=== PATIENT | female | born 1995 | race Caucasian/White ===

== ENCOUNTER → 2018-01-22 13:40 | Outpatient (CLI) | payer OTHER, SELFPAY ==
[2018-01-23 12:10] LABS: Group B Strep DNA By PCR Negative (Negative); Internal Control PASS; Probe Check PASS; Specimen Processing Control PASS
== END ==
PROVIDERS: Visit Provider Obstetrics & Gynecology
DX: Z36.85 Encounter for antenatal screening for Streptococcus B (principal)
CPT/HCPCS: 87081; 87653

== ENCOUNTER 2018-02-11 14:00 | Inpatient (IN) | payer SELFPAY ==
[2018-02-11] VITALS (13 sets, daily range): BP systolic 115–135; BP diastolic 67–88; PULSE 77–103; RESP 12–18; TEMP 36.1–36.8; O2SAT 97–99; BMI 27.2
[2018-02-11] MEDS: Lactated Ringers 1,000 ML 999 ML IV (14:45)
[2018-02-11 15:39] LABS: Absolute Lymphocyte Count 2.11 X10^3/ul (0.83-4.51); Absolute Neutrophil Count 8.5 X10^3/uL (2.0-7.7); Basophil# 0.01 X10^3/uL; Basophil% 0.1 % (0-1); Eosinophil# 0.02 X10^3/uL; Eosinophils% 0.2 % (0-5); Hematocrit 37.1 % (37-47); Hemoglobin 12.2 g/dl (12.0-15.0); Lymphocyte # 2.11 X10^3/ul (4.0); Lymphocyte % 18.5 % (19-41); Mean Corp Hgb Conc 32.9 g/gl (32-36); Mean Corpuscular Hgb 29.5 pg (27.0-32.0); Mean Corpuscular Volume 89.6 fL (81-99); Mean Platelet Vol. 10.4 fl (6.2-12.0); Monocyte# 0.72 X10^3/uL; Monocyte% 6.3 % (0-10); Neutrophil % 74.5 % (47-70); Platelet Count 261 K/mm3 (150-450); RBC Distribution Width CV 12.1 % (11.6-14.6); RBC Distribution Width SD 39.1 fl (35.1-43.9); Red Blood Count 4.14 M/mm3 (4.2-5.4); White Blood Count 11.4 K/mm3 (4.4-11.0)
[2018-02-11 15:41] LABS: POSITIVE COUNT NO; POSITIVE DIFFERENTIAL NO; POSITIVE MORPHOLOGY NO
[2018-02-11] MEDS: Lactated Ringers 1,000 ML 150 ML IV (15:45)
[2018-02-11 15:47] LABS: International Normalized Ratio 0.9; Partial Thromboplast Time 27.5 Seconds (24.1-36.2); Prothrombin Time (Protime)PT. 12.3 SECONDS (11.7-14.9)
[2018-02-11] MEDS: Sodium Citrate/Citric Acid 30 ML UDC PO (16:43)
[2018-02-11] MEDS: Cefazolin 2 GM in 0.9% Normal Saline 100 ML IV (17:05)
[2018-02-11] MEDS: Oxytocin 30 units/NS 500 ml 30 UNITS/500 ML IV.SOLN 167 UNITS IV (17:20)
[2018-02-11] MEDS: Ketorolac 30 MG/ML Syringe IV (17:48)
--- NOTE | 2018-02-11 18:01 | OP.PCM_ITS ---
Operative Report Date of Procedure: 02/11/18 Surgeon: Pardeep Nickerson MD, FACOG Drawing Frame Tender: CELESTE Purcell Anesthesia: Barry Garcia CRNA Anesthesia: Spinal with Duramorph Pre-op Diagnosis: - -Breech Presentation, 39 Weeks Gestation Post-Op Diagnosis: - -Breech Presentation, 39 Weeks Gestation Procedure: Primary low Transverse Cervical Caesarean Section Findings: Viable male with Apgars of 8/9 in crystal breech presentation with clear amniotic fluid and normal three-vessel placenta. Indication: This is a 22-year-old who presents for her first at 39+ weeks gestation for breech presentation. care has otherwise been uneventful. The patient has been counseled regarding the risk and indications of this procedure including the possibility of bleeding infection and injury to surrounding structures such as bowel bladder. All questions were answered. Procedure: Patient was taken to the operating room where after spinal anesthesia was placed, the patient was prepped and draped in usual sterile fashion and a Edmondson catheter was placed. The abdomen was entered through a Pfannenstiel incision and peritoneum was entered bluntly. After developing a bladder flap on the lower uterine segment a low transverse incision was made on the uterus and breech followed by the baby was easily delivered onto the operative field the nose mouth and oropharynx were bulb suctioned. Subsequently a viable male infant was born with Apgars of 8/9. The infant was noted to cry move all extremities vigorously on the operative field. The umbilical cord was doubly clamped and ligated and handed to the nursery personnel who were present for the delivery. Placenta was delivered and noted to be 3 vessels and normal. Uterus was exteriorized and remaining placental tissue was removed. The uterus was then closed in 2 layers first with running locked 0 Vicryl suture followed by a second imbricating layer with 0 Vicryl suture. 0 Vicryl suture was then used in a horizontal mattress interrupted fashion to affect final hemostasis of the uterine incision line. Normal fallopian tubes and ovaries were visualized and the uterus was returned to the pelvis. Hemostasis was noted and rectus abdominis muscles were reapproximated in the midline with interrupted Number 1 Vicryl suture in a horizontal mattress fashion. Fascia was closed with running Number 1 PDS Strata fix suture. Subcutaneous tissue was irrigated with copious amouts of saline solution and then closed with running 3-0 Vicryl suture. Skin was closed with 4-0 monocryl suture in a running subcuticular fashion. Steri strips, telfa, and tape were placed across the incision. The patient tolerated the procedure well and was taken to the recovery room in satisfactory condition. Sponge, needle, and instrument counts were all reportedly correct. EBL was less than 500 cc. Ancef 2 gms IV was given prior to the procedure. Spicemen to Pathology: None Complications: None
--- NOTE | 2018-02-11 18:02 | DCINST_ITS ---
Discharge Diet: No Restrictions Discharge Activity: May not drive while taking narcotic pain medications., May Shower, May Take a Tub Bath May resume sexual activity in: 4-6 weeks Lifting Restrictions: 20 pounds Additional Activity Instructions:: Nothing in the vagina for 4-6 weeks. You may return to work/school in 6 weeks. Call your doctor if your incision/area has: Continuous Slow Oozing, Sudden Increased Bleeding, Increased Pain/ Swelling, Increased Redness, Foul Smelling Discharge Call your doctor if you observe: Fever of 101 or Higher, Inability to urinate, Inability to have a bowel movement, Using more than one pad per hour Additional Instructions: If you experience any of the following, contact your healthcare provider. * Bleeding that soaks a pad every hour for 2 hours * Unrelieved incision or abdominal pain * Swelling, redness, discharge or bleeding from your incision or episiotomy site * Your incision begins to separate * Problems urinating (including inability to urinate or burning while urinating) . * Visual changes * Severe headache * Flu-like symptoms * Pain or redness in one of both of your breasts * Pain, warmth, tenderness or swelling in your legs, especially the calf area * Frequent nausea and vomiting * Symptoms of depression or anxiety If you experience any of the following, call 911 or go to the nearest Emergency Room. * Chest pain * Problems breathing * Seizure activity * Partial or complete paralysis of a body part, slurred speech, weakness or drooping of the face, or a sudden inability to walk or hold your balance Allergies/Adverse Reactions: Allergies No Known Allergies Allergy (Verified 02/11/18 15:52) Medications to take at Discharge Docusate Sodium [Colace] 100 mg PO BID PRN PRN #60 cap 02/11/18 Oxycodone [Oxyir] 5 mg PO Q6H PRN PRN 7 Days #20 tab 02/11/18 Vits [Prenatabs FA] 1 tablet PO DAILY 02/11/18 The following prescriptions were given: Oxycodone [Oxyir] 5 mg PO Q6H PRN PRN 7 Days #20 tab PRN Reason: Severe Pain (6-07/24) Docusate Sodium [Colace] 100 mg PO BID PRN PRN #60 cap PRN Reason: Constipation Follow-Up: Call to make an appointment with your doctor for an incision check in 1-2 weeks. You will also need a 6 week post- follow up appointment. Please Follow Up With: Pardeep Nickerson MD - [phone] When: Call to make an appointment for an incision check in 2 weeks. Primary Care Physician: Care Physician,No Primary [Primary Care Provider] -
[2018-02-11] MEDS: Lactated Ringers 1,000 ML 100 ML IV (21:36)
[2018-02-12] VITALS (16 sets, daily range): BP systolic 105–121; BP diastolic 61–80; PULSE 75–97; RESP 16–18; TEMP 36.4–37; O2SAT 95–100
[2018-02-12] MEDS: Cefazolin 1 GM/50 ML BAG IV ×2 (00:22→10:00)
[2018-02-12] MEDS: Ketorolac 30 MG/ML Syringe IV ×4 (00:22→17:39)
[2018-02-12 05:16] LABS: Hematocrit 33.6 % (37-47); Hemoglobin 11.3 g/dl (12.0-15.0); Mean Corp Hgb Conc 33.6 g/gl (32-36); Mean Corpuscular Hgb 30.2 pg (27.0-32.0); Mean Corpuscular Volume 89.8 fL (81-99); Mean Platelet Vol. 10.3 fl (6.2-12.0); Platelet Count 222 K/mm3 (150-450); RBC Distribution Width CV 11.9 % (11.6-14.6); RBC Distribution Width SD 37.6 fl (35.1-43.9); Red Blood Count 3.74 M/mm3 (4.2-5.4); White Blood Count 14.9 K/mm3 (4.4-11.0)
[2018-02-12 05:20] LABS: Scan Indicated on CBC? Y/N NO
[2018-02-12] MEDS: 0.9% Saline Lock 10 ML Syringe IV ×3 (06:26→17:39)
--- NOTE | 2018-02-12 06:52 | PN.OBGYN_ITS ---
Subjective: Postoperative day #1 primary Patient without complaints. Tolerating diet well. Positive flatus. Breast- feeding going well. - Physical Exam Vital Signs AF, VSS Temp Pulse Resp BP Pulse Ox 97.6 F L 75 16 105/68 97 02/12/18 04:13 02/12/18 05:13 02/12/18 05:13 02/12/18 04:13 02/12/18 05:13 Oxygen Delivery Method Room Air Weight: 144 lb 2.917 oz Body Mass Index (BMI) 27.2 Intake and Output for Last 24 Hours 02/10/18 02/11/18 02/12/18 23:59 23:59 23:59 Intake Total 2326 / 2326 1592 / 1592 Output Total 700 / 700 1800 / 1800 Balance 1626 / 1626 -208 / -208 Laboratory Tests Past 24 Hrs 02/11/18 02/11/18 02/11/18 14:49 14:49 14:49 WBC 11.4 H RBC 4.14 L Hgb 12.2 Hct 37.1 MCV 89.6 MCH 29.5 MCHC 32.9 RDW 12.1 RDW Differential 39.1 Plt Count 261 MPV 10.4 Immature Gran % (Auto) 0.400 Neut % (Auto) 74.5 H Lymph % (Auto) 18.5 L [place] % (Auto) 6.3 Eos % (Auto) 0.2 Baso % (Auto) 0.1 Absolute Neuts (auto) 8.5 H Absolute Lymphs (auto) 2.11 Total Counted Not Reportable PT 12.3 INR 0.9 APTT 27.5 Blood Type Cancelled A1 Antigen Typing Cancelled Rho(D) Type Cancelled Antibody Screen Cancelled 02/11/18 02/12/18 15:52 04:31 WBC 14.9 H RBC 3.74 L Hgb 11.3 L Hct 33.6 L MCV 89.8 MCH 30.2 MCHC 33.6 RDW 11.9 RDW Differential 37.6 Plt Count 222 MPV 10.3 Immature Gran % (Auto) Neut % (Auto) Lymph % (Auto) [place] % (Auto) Eos % (Auto) Baso % (Auto) Absolute Neuts (auto) Absolute Lymphs (auto) Total Counted PT INR APTT Blood Type O POSITIVE A1 Antigen Typing Rho(D) Type Antibody Screen NEGATIVE Wound is clean, dry, intact. Good urine output. Hemoglobin okay. Medical Necessity - Tobacco Use Smoking Status: Never smoker Assessment/Plan Postoperative day #1 primary for breech. Doing well. Continuing present care.
[2018-02-12] MEDS: oxyCODONE 5 MG Tablet PO (22:14)
[2018-02-13] MEDS: Ketorolac 30 MG/ML Syringe IV (00:08)
[2018-02-13] MEDS: 0.9% Saline Lock 10 ML Syringe IV (00:08)
[2018-02-13 02:32] VITALS: BP 102/48; PULSE 64; RESP 16; TEMP 37.1; O2SAT 95
[2018-02-13] MEDS: Ibuprofen 600 MG Tablet PO (06:42)
[2018-02-13 08:00] VITALS: BP 118/49; PULSE 72; RESP 16; TEMP 36.4; O2SAT 95
--- NOTE | 2018-02-13 08:15 | PN.OBGYN_ITS ---
Subjective: Patient without complaints. Tolerating diet well. Positive flatus. Breast- feeding going well. Wants to go home. - Physical Exam Vital Signs Temp Pulse Resp BP Pulse Ox 98.8 F 64 16 102/48 L 95 02/13/18 02:32 02/13/18 02:32 02/13/18 02:32 02/13/18 02:32 02/13/18 02:32 Oxygen Delivery Method Room Air Weight: 144 lb 2.917 oz Body Mass Index (BMI) 27.2 Intake and Output for Last 24 Hours 02/11/18 02/12/18 02/13/18 23:59 23:59 23:59 Intake Total 2326 / 2326 1592 / 1592 Output Total 700 / 700 4900 / 4900 Balance 1626 / 1626 -3308 / -3308 Medical Necessity - Tobacco Use Smoking Status: Never smoker Assessment/Plan Postoperative day #2 status post very for breech. Doing well. Will release to home with routine instructions.
[2018-02-13] MEDS: Senna/Docusate Sodium 1 Tablet PO (10:47)
[2018-02-13 14:30] VITALS: BP 111/70; PULSE 98; RESP 16; TEMP 36.6; O2SAT 97
== END 2018-02-13 17:00 | disposition home or self-care (01) | DRG 766 ==
PROVIDERS: Admitting Provider Obstetrics & Gynecology; Visit Provider Obstetrics & Gynecology
PROC: 10D00Z1 Extraction of Products of Conception, Low, Open Approach (ICD-10-PCS; CPT 59514; principal; 2018-02-11 16:45)
DX: O32.1XX0 Maternal care for breech presentation, not applicable or unspecified (principal); Z3A.39 39 weeks gestation of pregnancy; Z37.0 Single live birth
CPT/HCPCS: 85025; 85027; 85610; 85730; 86850; 86900; 99218; J7120; A4216; G0378; J2405

== ENCOUNTER → 2019-06-24 11:30 | Outpatient (CLI) | payer OTHER, SELFPAY ==
[2018-02-11 15:50] VITALS: BMI 27.2
[2019-06-25 16:17] LABS: Chlamydia Trachomatis by PCR Negative (Negative); Neisserai gonorrhoeae by PCR Negative (Negative); Probe Check PASS; Sample Adequacy Control PASS; Specimen Processing Control PASS
[2019-06-30 12:19] LABS: HPV Reflexed? NOT INDICATED
== END ==
PROVIDERS: Referring Provider Obstetrics & Gynecology; Visit Provider Obstetrics & Gynecology
DX: Z11.3 Encounter for screening for infections with a predominantly sexual mode of transmission (principal); Z12.4 Encounter for screening for malignant neoplasm of cervix
CPT/HCPCS: 87491; 87591; 87624; 88175; G0145

== ENCOUNTER → 2019-07-11 11:00 | Outpatient (CLI) | payer OTHER, SELFPAY ==
[2018-02-11 15:50] VITALS: BMI 27.2
[2019-07-11 14:17] LABS: Color, Urine Amber (Yellow); Glucose, Dipstick Normal (Normal); Ketone-Dipstick Negative (Negative); Leukocyte Esterase-Dipstick 500 /ul (Negative); Nitrite-Dipstick Negative (Negative); Occult Blood-Urine 10 /ul (Negative); Protein-Dipstick 15 mg/dl (Negative); Specific Gravity, Urine 1.025 (1.002-1.030); Urine Bilirubin Dipstick Negative (Negative); Urine Clarity Turbid (Clear); Urine Urobilinogen Normal (Normal)
== END ==
PROVIDERS: Visit Provider Obstetrics & Gynecology
DX: Z34.81 Encounter for supervision of other normal pregnancy, first trimester (principal)
CPT/HCPCS: 36415; 81002

== ENCOUNTER 2020-02-05 05:30 | Inpatient (IN) | payer SELFPAY ==
[2018-02-11 15:50] VITALS: BMI 27.2
--- NOTE | 2020-02-04 23:27 | HP.PCM_ITS ---
History and Physical Date of Admission: 02/05/20 [facility] [place] [facility] - HISTORY AND PHYSICAL (02/04/2020) Name: FILIPE GALEANO OB Physician: BROWN History of This : This is a 24-year-old patient who presents for her second section at 39 weeks 0 days gestation. Patient declines a vaginal after and desires we proceed with repeat section. 's Physician: Jatin ...................................................................... : 1995 Age: 24 Address: [address] [place] [address] Phone: ([phone] Insurance Carrier: [facility] [id number] Emergency Contact: JASON GALEANO [phone] ...................................................................... Final CHATO: 02/12/20 By Ultrasound: 9 weeks 1 day PARITY: (G-Total Pregnancies P-Fullterm,Premature,Induced AB,Spont AB, Ectopics, Multiple,Living) CHATO CONFIRMATION: By LMP: 05/08/19 Initial Exam: 02/12/20 By First Ultrasound Exam: 02/11/20 Final CHATO: 02/12/20 OB PROBLEM LIST: BREECH at 37-- weeks--plan for now -- calculator success predicted 82 percent MSAFP and CF testing declined Wants repeat ALLERGIES: No Known Allergies MEDICATIONS: Colace 100 mg capsule One capsule by mouth 2 x daily as needed for constipation 28 mg iron-800 mcg tablet One pill by mouth once a day Zofran 4 mg tablet one by mouth every 8 hrs prn nausea/vomiting SOCIAL HISTORY: Smoking - Never Alcohol Use - denies drinking Diet - balanced Diet Lifestyle - low stress lifestyle and Exercise - active Employer - [employer] 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 Drug Use - denies use of street drugs Sexual Activity - Residence - lives with Place of - [place], [place] Spouse-Sig Other Name - Marcos Spouse-Sig Other Occupation - [employer] Spouse-Sig Other Phone No - [phone] Children Name(s) - Nathan(18) PRIOR DELIVERY HISTORY DEL DATE GEST LAB WT LB WT OZ TYPE ANES LABOR TX 30 Apr 18 39 0 6 12 C-Sec Spinal No ANTEPARTUM FLOW CHART VISIT RTC FU F F RI U U DATE WK MD WKS HT PN HR M SS BP ED WT RI GL D EF ST __ ____ ___ __ __ ___ __ __ __ ___ __ __ __ ___ __ 14 Jan 37 JMW 7 37 + + 108/75 0 148 tr - 31 Dec 35 JMW 2 35 V + + 124/80 tr 149 tr - 10 Dec JMW 3 32 + + 110/62 0 146 tr - 11 Dec 12 JMW 3 28 + + 114/64 0 141 tr 1+ 21 Nov 08 JMW 3 25 + + 104/68 0 136 tr - 17 Oct 03 JMW 4 20 + + 110/68 0 128 - - 19 Aug 30 JMW 4 16 + ? 100/66 0 122 - - 22 Jul 26 JMW 4 + O 104/62 0 115 - - 27 Jun 23 JMW 4 + US 114/70 0 113 tr - ANTEPARTUM NOTE(S): Jan 27 2020: LARC done Jan 13 2020: Good FM,Feeling Well Dec 23 2019: Feeling Well, Good FM Nov 25 2020: Doing Well, 1hrGTT/CBC today Nov 04 2019: Glucola/Instructions Given,Good FM,Feeling Well Sep 30 2019: Sono Today,Good FM,Feeling Well Sep 02 2019: Nausea and Fatigue Better,Declines AFP Aug 05 2019: Nausea/Fatigue Better,Feeling Well Jul 11 2019: Sono,PNV and NOB Visit COMPREHENSIVE ANTEPARTUM NOTE(S): Jul 11 2019: Filipe is here ay 9 w 1 d for her NOB visit, she is a with an CHATO of 02/13/2020. , Marcos, and their 17 month old son, Nathan, accompany Filipe today. Nathan was delivered by C/S for breech presentation at [facility]. Past history updated. Filipe states that at this time, she is leaning toward having a repeat C/S. Delivery at [facility] is planned and she will will breastfeed. Office practice patterns reviewed, including labs that will be collected today. She is aware of danger signs/emergencies to report, and how to do same. Reviewed round ligament pain, reporting suspected UTI, and common OTC medications approved/not approved for use during . Due to nausea, she has not been taking a vitamin; suggested trying 2 [employer]'s Chewable vitamins a day until nausea resolves. She has been taking Zofran for nausea, and states that this has been helpful, and that she can usua lly eat and drink water without problems. She takes Colace, and states this has been effective. Encouraged small frequent meals with protein included throughout the day and adequate water hydration of at least 1 gallon per 24 hours. Genetic Screen completed, no significant history noted. MSAFP and CF testing declined, consent signed as such. Filipe is a life long non-smoker and denies use of drugs or ETOH. water and dietary needs reinforced, including caloric needs, recommended weight gain, limiting empty calories, and limiting caffeine to one cup a day. Printed guide for food safety during provided with review. Lifting restrictions discussed. Physical activity recommendation reviewed. Filipe has no questions following NOB viist, and states that she understands all information provided during same. AW New Jun 24 2019: Filipe presents for her Missed Menses. She is a 24yo G 2, P 1 with hx of P/ for BREECH presentation. She is uncertain if she would like to attempt or go to R/. LMP 05/08/19, CHATO by LMP 02/13/20. She has had severe Nausea and Vomitting and started on Zofran yesterday. I recommend she push fluids as tolerated and try the BRAT diet for several days until she gets this N and V under control. No other questions or concerns voiced. JT Jun 24 2019: ok REVIEW OF SYSTEMS: GENERAL - Denies fever, or chills SKIN - Denies rash, new skin lesions, or change in moles EYES - Denies blurred vision, or change in visual acuity EARS - Denies ear pain, or difficulty hearing NOSE - Denies nasal congestion, discharge, or bleeding MOUTH - Denies sore throat, or difficulty swallowing NECK - Denies pain or swelling RESPIRATORY - Denies shortness of breath, cough, wheezing CARDIOVASCULAR - Denies palpitations, chest pain, orthopnea, PND, peripheral edema, syncope or claudication GASTROINTESTINAL - Denies nausea, vomiting, diarrhea, constipation, Denies abdominal pain, melena and or bright red blood GENITOURINARY - Denies dysuria, frequency of urination, urgency, or hesitancy MUSCULOSKELETAL - Denies joint or muscle pain, or back pain NEUROLOGICAL - Denies localized numbness, weakness, or tingling PSYCHIATRIC - Denies depression, anxiety, substance abuse or suicide attempts ENDOCRINE - Denies heat or cold intolerance, weight loss or gain, increasing thirst HEMATO-IMMUNOLOGIC - Denies easy bruising, bleeding, oral ulcerations or recurrent infections GENETICS SCREENING: Age 35+ years: No Thalassemia: No Neural Tube Defect: No Down Syndrome: No KATARINA-SACHS: No Sickle Cell Disease: No Hemophilia: No Musc. Dystrophy: No Cystic Fibrosis: No-declines screening [place] Chorea: No Mental Retardation: No Fragile X: No Other genetic: No Other defects: No SABs/still births: No Drugs since LMP: No INFECTION HISTORY: High risk AIDS: No High risk Hepatitis: No Exposed to TB: No Exposed to Herpes: No Rash/viral illness since LMP: No History of STD: No MENSTRUAL HISTORY: *Menarche (Age Onset): 10* PAST SUMMARY: PARITY: 1. Total Pregnancies............ 2 2. Full Term Pregnancies........ 1 3. Premature.................... 0 4. Abortions - Induced.......... 0 5. Abortions - Spontaneous...... 0 6. Ectopics..................... 0 7. Multiple Births.............. 0 8. Living Children.............. 1 PAST #1: Date of :.................. 02/11/18 Gestation Weeks:................ 39 Length of labor(hours):......... 0 Sex:............................ M Weight-lbs:............... 6 Weight-oz:................ 12 Type of Delivery:............... C-Sect Type of Anesthesia:............. Spinal Place of Delivery:.............. [place] Treatment of Labor?:.... No Comment: BREECH PHYSICAL EXAMINATION General Appearence: 24 yo female in no acute distress Vital Signs: AF, VSS Heart: RRR without rubs or gallops Lungs: CTA x 2 Breasts: deferred Abdomen: gravid Pelvis: Cervix: Not examined Presentation: Unknown with certainty Station: -2 Fetus: Size: AGA Movement: present Heart: present Labs for : FILIPE GALEANO since 05/18/2019 ORDER DATEIN DESCRIPTION VALUE UNITS RANGE A+ COMMENT GLUCOSE CHALLENGE 50GM 1 HOUR 11/25/19 NOTE Original Ordering Provider: MARCE JOSUE GLUCOSE CHALLENGE 50GM 1 HOUR GLUCOSE CHALLENGE 50 GMS 1 HOUR GLUCOSE 1HR 101 mg/dl 70 - 140 Reviewed by MARCE CBC + DIFF 11/25/19 NOTE Original Ordering Provider: MARCE JOSUE CBC + DIFF CBC-COMPLETE BLOOD COUNT WBC 10.8 x 10EE3/UL 4.5 - 10.8 RBC 3.85 x 10EE6/UL 4.10 - 5.30 L HEMOGLOBIN 11.5 g/dl 12.0 - 16.0 L HEMATOCRIT 34.2 % 34.0 - 46.0 MCV 89 fl 80 - 99 MCH 30 pg 27 - 33 MCHC 34 X10 3 32 - 36 RDW/CV 11.8 % 12.0 - 15.6 L PLATELET 284 x10EE3/UL 150 - 450 MPV 8.1 fl 6.6 - 10.5 AUTOMATED DIFFERENTIAL NEUT % 78.1 % 46.0 - 76.0 H LYMPH % 15.8 % 20.0 - 45.0 L MONOS % 5.2 % 0.0 - 10.0 EO % 0.5 % 0.0 - 7.0 BASO % 0.4 % 0.0 - 2.0 LYMPH # 1.70 x10EE3/UL 0.80 - 2.80 NEUT # 8.40 x10EE3/UL 1.50 - 7.10 H MONO #w 0.60 x10EE3/UL 0.20 - 1.00 EO # 0.10 x10EE3/UL 0.00 - 0.50 BASO # 0.00 x10EE3/UL 0.00 - 0.10 MANUAL DIFF N/A MORPHOLOGY N/A Reviewed by MARCE URINALYSIS, ROUTINE (DIPSTICK) 07/11/19 NOTE Original Ordering Provider: Marce Josue COLOR Valentina Yellow CLARITY Turbid Clear GLUCOSE, UR Normalw mg/dl Normal BILIRUBIN URINE Negative mg/dL Negative KETONE UR Negative mg/dl Negative SP.GR. DIPSTX 1.025 1.002-1.030 PH UR 5.0 5.0 - 8.0 PROT DIPSTX 15 mg/dl Negative H UROBILI Normal mg/dl Normal NITRITE UR Negative Negative OCCULT BLOOD-UR 10 /ul Negative H LEUK ESTERASE 500 /ul Negative H Reviewed by MARCE PAP IG W/REFLEX HR HPV APTIMA 06/24/19 NOTE Original Ordering Provider: Marce Josue DIAGN . NEGATIVE FOR INTRAEPITHELIAL LESION OR MALIGNANCY. ADEQ . Satisfactory for evaluation. Endocervical and/or squamous metaplastic cells (endocervical component) are present. PERFORM . Ramesh Manhattan, Child Development Professor (ASCP) TEST METHOD . This liquid based ThinPrep(R) pap test was screened with the use of an image guided system. COMM . . PAPSMR . The Pap smear is a screening test designed to aid in the detection of premalignant and malignant conditions of the uterine cervix. It is not a diagnostic procedure and should not be used as the sole means of detecting cervical cancer. Both false-positive and false-negative reports do occur. HPV RFLX . The HPV DNA reflex criteria were not met with this specimen result therefore, no HPV testing was performed. Performed at: [address] [id number] Investigative Writer: Lali Avila MD, Phone: [phone] Reviewed by MARKOS [facility] BY PCR 06/24/19 NOTE Original Ordering Provider: Marce [facility] PCR Negative Negative NG BY PCR Negative Negative Reviewed by MARCE Impression /Plan: 39-week intrauterine for repeat section. Discussed risks, benefits, alternatives and all questions were answered. Preparations in progress for delivery. Essential Procedure Criteria Procedure Essential: Yes Criteria Note: On 12/30/2019 the [facility] ([facility]) Public Order signed by [facility] Director Yodit Walker M.D., regarding the Management of Non- Essential Surgeries and Procedures for the purpose of preserving Personal Protective Equipment (PPE) and critical hospital capacity and resources within [place] went into effect as of 12/31/2019 at 5:00PM. According to the [facility] Public Order: This action will remain in full force and effect until the State of Emergency declared by the Governor no longer exists or the Director of the [facility] rescinds or modifies this Order.. This [facility] order stated all non-essential or elective surgeries and procedures that utilize PPE should be delayed unless there is undue risk to the current or future health of a patient. After reviewing the aforementioned [facility] Public Order and the patients clinical case, I have determined that the scheduled procedure meets the criteria to go forward. Risk to Patient if Procedure Delayed: Threat to patient's life if surgery or procedure is not performed - Pt is .
[2020-02-05] VITALS (17 sets, daily range): BP systolic 95–122; BP diastolic 41–80; PULSE 60–97; RESP 11–18; TEMP 36–37.4; O2SAT 97–100; BMI 28.6
[2020-02-05] MEDS: Lactated Ringers 1,000 ML 999 ML IV (06:10)
[2020-02-05 06:31] LABS: Absolute Lymphocyte Count 2.35 X10^3/uL (0.83-4.51); Absolute Neutrophil Count 5.3 X10^3/uL (2.0-7.7); Basophil# 0.02 X10^3/uL; Basophil% 0.2 % (0-1); Eosinophil# 0.03 X10^3/uL; Eosinophils% 0.4 % (0-5); Hematocrit 34.4 % (37-47); Hemoglobin 11.1 g/dL (12.0-15.0); Lymphocyte # 2.35 X10^3/ul (4.0); Lymphocyte % 28.1 % (19-41); Mean Corp Hgb Conc 32.3 g/dL (32-36); Mean Corpuscular Hgb 27.3 pg (27.0-32.0); Mean Corpuscular Volume 84.7 fL (81-99); Mean Platelet Vol. 10.4 fl (6.2-12.0); Monocyte# 0.59 X10^3/uL; Monocyte% 7.1 % (0-10); NRBC Flagged by Analyzer 0 % (0-5); Neutrophil % 63.5 % (47-70); Platelet Count 280 K/mm3 (150-450); RBC Distribution Width CV 12.5 % (11.6-14.6); RBC Distribution Width SD 38.3 fl (35.1-43.9); Red Blood Count 4.06 M/mm3 (4.2-5.4); White Blood Count 8.4 K/mm3 (4.4-11.0)
[2020-02-05] MEDS: Cefazolin 2 GM in 0.9% Normal Saline 100 ML IV (07:06)
[2020-02-05] MEDS: Sodium Citrate/Citric Acid 30 ML UDC PO (07:06)
[2020-02-05 08:13] LABS: Rubella IgG 33.7 IU/mL
--- NOTE | 2020-02-05 08:22 | PCM.OPRPT ---
Delivery Classification: Scheduled Final CHATO: 02/12/20 Final CHATO Source: US <20 weeks Gestational age: 39 Weeks and 0 Days voice professor: Ainsley Graf Type of Anesthesia:: Spinal Implants Used: None Date of Procedure: 02/05/20 Pre-Operative Diagnosis: Prior Section Post-Operative Diagnosis: Prior Section Indications: Prior Section Description of Procedure: Surgeon: Pardeep Nickerson MD, FACOG Anesthesia: Maggie Pendleton CRNA Anesthesia: Spinal with Duramorph Pre-op Diagnosis: Prior Section Post-Op Diagnosis: Prior Section Procedure: Repeat Low Transverse Cervical Caesarean Section Findings: Viable female infant with Apgars of 8/9 in occiput anterior presentation with clear amniotic fluid and normal three-vessel placenta. Indication: This is a 24-year-old who presents for her second at 39 weeks gestation. care has otherwise been uneventful. The patient has been counseled regarding the risk and indications of this procedure including the possibility of bleeding infection and injury to surrounding structures such as bowel bladder. All questions were answered. Procedure: Patient was taken to the operating room where after spinal anesthesia was placed, the patient was prepped and draped in usual sterile fashion and a Edmondson catheter was placed. The abdomen was entered through the patient's prior Pfannenstiel incision and peritoneum was entered bluntly. After developing a bladder flap on the lower uterine segment a low transverse incision was made on the uterus and head was easily delivered onto the operative field the nose mouth and oropharynx were bulb suctioned. Subsequently a viable female was born with Apgars of 8/9. The infant was noted to cry move all extremities vigorously on the operative field. The umbilical cord was doubly clamped and ligated and handed to the nursery personnel who were present for the delivery. Placenta was delivered and noted to be 3 vessels and normal. Uterus was exteriorized and remaining placental tissue was removed. The uterus was then closed in 2 layers first with running locked 0 Vicryl suture followed by a second imbricating layer with 0 Vicryl suture. 0 Vicryl suture was then used in a horizontal mattress interrupted fashion to affect final hemostasis of the uterine incision line. Normal fallopian tubes and ovaries were visualized and the uterus was returned to the pelvis. Hemostasis was noted and rectus abdominis muscles were reapproximated in the midline with interrupted Number 0 Vicryl suture in a horizontal mattress fashion. Fascia was closed with running Number 1 PDS Strata fix suture. Subcutaneous tissue was irrigated with copious amouts of saline solution and then closed with running 3-0 Vicryl suture. Skin was closed with 4-0 monocryl suture in a running subcuticular fashion. Steri strips and Mepilex dressing were placed across the incision. The patient tolerated the procedure well and was taken to the recovery room in satisfactory condition. Sponge, needle, and instrument counts were all reportedly correct. EBL was less than 500 cc. Ancef 2 gms IV was given prior to the procedure. Amniotic Fluid Description: Clear Placenta Disposition: [facility] Drain: Edmondson to straight drain Fluids Replaced: Crystalloid Cord Entanglement: None Cord Vessel Description: 3 Vessels Esitmated Blood Loss (ml): 500 cc Infant Gender: Female (1 minute): 8 (5 minute): 9 Antibiotic Given: Ancef 2 grams IV x1 Pt instructed on risks of surgery: Bleeding, Infection, Injury to surrounding structure(s) including bowel and bladder Complications: None - Admit VTE Documentation VTE Present on Admission: Yes VTE Mechan Device Prophylaxis: SCD's
--- NOTE | 2020-02-05 08:33 | DCINST_ITS ---
Discharge Diet: No Restrictions Discharge Activity: May not drive while taking narcotic pain medications., May Shower, May Take a Tub Bath May resume sexual activity in: 4-6 weeks Lifting Restrictions: 20 pounds Additional Activity Instructions:: Nothing in the vagina for 4-6 weeks. You may return to work/school in 6 weeks. Call your doctor if your incision/area has: Continuous Slow Oozing, Sudden Increased Bleeding, Increased Pain/ Swelling, Increased Redness, Foul Smelling Discharge Call your doctor if you observe: Fever of 101 or Higher, Inability to urinate, Inability to have a bowel movement, Using more than one pad per hour Additional Instructions: If you experience any of the following, contact your healthcare provider. * Bleeding that soaks a pad every hour for 2 hours * Unrelieved incision or abdominal pain * Swelling, redness, discharge or bleeding from your incision or episiotomy site * Your incision begins to separate * Problems urinating (including inability to urinate or burning while urinating). * Visual changes * Severe headache * Flu-like symptoms * Pain or redness in one of both of your breasts * Pain, warmth, tenderness or swelling in your legs, especially the calf area * Frequent nausea and vomiting * Symptoms of depression or anxiety If you experience any of the following, call 911 or go to the nearest Emergency Room. * Chest pain * Problems breathing * Seizure activity * Partial or complete paralysis of a body part, slurred speech, weakness or drooping of the face, or a sudden inability to walk or hold your balance Allergies/Adverse Reactions: Allergies No Known Allergies Allergy (Verified 02/11/18 15:52) Medications to take at Discharge Docusate Sodium [Colace] 100 mg PO BID PRN PRN #60 cap 02/05/20 Oxycodone [Oxyir] 5 mg PO Q6H PRN PRN 7 Days #20 tab 02/05/20 The following prescriptions were given: Docusate Sodium [Colace] 100 mg PO BID PRN PRN #60 cap PRN Reason: Constipation Transmission Status: Received by [facility]/pharmacy #[id number] Oxycodone [Oxyir] 5 mg PO Q6H PRN PRN 7 Days #20 tab PRN Reason: Pain Score 6-10/10 Transmission Status: Received by [facility]/pharmacy #[id number] Follow-Up: Call to make an appointment with your doctor for an incision check in 1-2 weeks. You will also need a 6 week post- follow up appointment. Test results from this visit will be discussed in further detail at your follow- up appointment, if applicable. Please Follow Up With: Pardeep Nickerson MD - [phone] When: Call to make an appointment for an incision check in 2 weeks. Primary Care Physician: Pardeep Steiner MD [Primary Care Provider] -
[2020-02-05 08:41] LABS: HIV - WCH Non-Reactive (Nonreactive); Hepatitis B Surface Antigen Non-Reactive (Nonreactive); Hepatitis C Antibody Non-Reactive (Nonreactive)
[2020-02-05] MEDS: Ketorolac 30 MG/ML Syringe IV ×3 (12:50→23:35)
[2020-02-05] MEDS: Cefazolin 1 GM/50 ML BAG IV ×2 (14:29→23:36)
[2020-02-05] MEDS: Lactated Ringers 1,000 ML 100 ML IV (17:54)
[2020-02-05] MEDS: 0.9% Saline Lock 10 ML Syringe IV (23:35)
[2020-02-06] MEDS: 0.9% Saline Lock 10 ML Syringe IV ×2 (00:09→06:13)
[2020-02-06 04:35] VITALS: BP 107/43; PULSE 63; RESP 16; TEMP 37.3; O2SAT 98
[2020-02-06 04:52] LABS: Hematocrit 31.3 % (37-47); Hemoglobin 10.2 g/dL (12.0-15.0); Mean Corp Hgb Conc 32.6 g/dL (32-36); Mean Corpuscular Hgb 27.9 pg (27.0-32.0); Mean Corpuscular Volume 85.5 fL (81-99); Mean Platelet Vol. 9.7 fl (6.2-12.0); Platelet Count 229 K/mm3 (150-450); RBC Distribution Width CV 12.7 % (11.6-14.6); RBC Distribution Width SD 39.3 fl (35.1-43.9); Red Blood Count 3.66 M/mm3 (4.2-5.4); White Blood Count 11.4 K/mm3 (4.4-11.0)
[2020-02-06] MEDS: Ibuprofen 600 MG Tablet PO ×3 (06:22→18:34)
[2020-02-06 09:05] VITALS: BP 100/41; PULSE 65; RESP 14; TEMP 36.6
--- NOTE | 2020-02-06 09:14 | PCM.PN.OB ---
Subjective: Feeling well with mild cramps, but Motrin is controlling it well. Denies heavy bleeding. States well. Objective: VSS. Fundus, firm, midline and u/1. Lochia rubra scant. Bowel sounds active with +flatus. - Physical Exam Vitals/I&O's: Vital Signs Temp Pulse Resp BP Pulse Ox 99.1 F 63 16 107/43 L 98 02/06/20 04:35 02/06/20 04:35 02/06/20 04:35 02/06/20 04:35 02/06/20 04:35 Oxygen Delivery Method Room Air Weight: 68.7 kg Body Mass Index (BMI) 28.6 Intake and Output for Last 24 Hours 02/04/20 02/05/20 02/06/20 23:59 23:59 23:59 Intake Total 2335.68 / 2335.68 400 / 400 Output Total 650 / 650 800 / 800 Balance 1685.68 / 1685.68 -400 / -400 General: Alert, Oriented x3, Cooperative HEENT: Atraumatic, PERRLA, EOMI, Normocephalic Neck: Supple, No JVD, Negative Carotid Bruits Lungs: Clear to auscultation, Normal air movement Cardiovascular: Regular rate, No murmurs Abdomen: Bowel Sounds Present, Soft, Non Tender, Passing Flatus, - - dressing CDI Extremities: No edema, Capillary Refill Less than 3 Seconds Skin: No rashes, No breakdown Musculoskeletal: No Tenderness to Palpation of Joints or Extremities Neurological: Cranial nerves II-XII grossly intact Psych/Mental Status: Normal Affect, Appropriate Laboratory Results 02/06/20 04:40: WBC 11.4 H, RBC 3.66 L, Hgb 10.2 L, Hct 31.3 L, MCV 85.5, MCH 27.9, MCHC 32.6, RDW Std Deviation 39.3, RDW Coeff of Dc 12.7, Plt Count 229, MPV 9.7 Current Medications Acetaminophen (Tylenol) 1,000 mg PO Q8H PRN PRN Reason: Pain Score 1-3/10 Bisacodyl (Dulcolax) 10 mg RECTAL UD PRN PRN Reason: If no BM Hydrocortisone (Hytone) 1 applic TOPICAL TID PRN PRN; Protocol PRN Reason: Discomfort Naloxone HCl 4 mg/ Dextrose 504 mls @ 0 mls/hr IV .Q0M PRN; Protocol PRN Reason: Respiratory depression Ibuprofen (Motrin) 600 mg PO Q6H PRN PRN PRN Reason: Pain Score 1-3/10 Last Admin: 02/06/20 06:22 Dose: 600 mg Documented by: Methylergonovine Maleate (Methergine) 0.2 mg IM X1 PRN PRN Reason: Uterine Atony Naloxone HCl (Narcan) 0.02 mg IV Q1M PRN PRN Reason: RR <10 and pt unresponsive Ondansetron HCl (Zofran) 4 mg IV Q4H PRN PRN PRN Reason: Nausea Oxycodone HCl (Oxyir) 5 - 10 mg PO Q4H PRN PRN PRN Reason: Pain Score 4-10/10 Prochlorperazine Edisylate (Compazine Iv) 10 mg IV Q6H PRN PRN PRN Reason: NAUSEA Senna/Docusate Sodium (Senokot-S, Deloris-Colace) 0 tablet PO DAILY PRN PRN Reason: Constipation Simethicone (Mylicon) 80 mg PO PCHS PRN PRN Reason: Indigestion/stomach pain Medical Necessity - Tobacco Use Smoking Status: Never smoker Assessment/Plan A/P: POD #1 Repeat Pain well controlled with oral Motrin Incision CDI Normal involution and course Hopes to discharge tomorrow
[2020-02-06] MEDS: Acetaminophen 500 MG Tablet 1000 MG PO (09:38)
[2020-02-06 13:40] VITALS: BP 108/61; PULSE 74; RESP 16; TEMP 36.6
[2020-02-06] MEDS: Senna/Docusate Sodium 1 Tablet PO (13:51)
[2020-02-06] MEDS: oxyCODONE 5 MG Tablet PO ×2 (14:47→19:47)
[2020-02-06 20:00] VITALS: BP 119/65; PULSE 64; RESP 18; TEMP 36.9
[2020-02-07] MEDS: oxyCODONE 5 MG Tablet PO ×3 (00:51→10:34)
[2020-02-07] MEDS: Acetaminophen 500 MG Tablet 1000 MG PO (00:51)
[2020-02-07 01:24] VITALS: BP 127/75; PULSE 72; RESP 14; TEMP 36.7
[2020-02-07 07:31] VITALS: BP 119/80; PULSE 66; RESP 16; TEMP 36.6; O2SAT 98
[2020-02-07] MEDS: Senna/Docusate Sodium 1 Tablet PO (09:46)
--- NOTE | 2020-02-07 11:12 | PCM.PN.OB ---
Subjective: Feeling well and ready to discharge. Has mild cramping, but Motrin is controlling it well. Wants scripts sent to [facility] pharmacy. Denies heavy bleeding. is going well with no concerns. Objective: VSS. Fundus, firm, midline U/2. Dressing CDI, will remove at home. Lochia rubra scant. - Physical Exam Vitals/I&O's: Vital Signs Temp Pulse Resp BP Pulse Ox 97.9 F 66 16 119/80 98 02/07/20 07:31 02/07/20 07:31 02/07/20 07:31 02/07/20 07:31 02/07/20 07:31 Oxygen Delivery Method Room Air Weight: 68.7 kg Body Mass Index (BMI) 28.6 Intake and Output for Last 24 Hours 02/05/20 02/06/20 02/07/20 23:59 23:59 23:59 Intake Total 2335.68 / 2335.68 400 / 400 Output Total 650 / 650 800 / 800 Balance 1685.68 / 1685.68 -400 / -400 General: Alert, Oriented x3, Cooperative HEENT: Atraumatic, PERRLA, EOMI, Normocephalic Neck: Supple, No JVD, Negative Carotid Bruits Lungs: Clear to auscultation, Normal air movement Cardiovascular: Regular rate, No murmurs Abdomen: Bowel Sounds Present, Soft, Non Tender Extremities: No edema, Capillary Refill Less than 3 Seconds Skin: No rashes, No breakdown, Incision - dressing CDI Musculoskeletal: No Tenderness to Palpation of Joints or Extremities Neurological: Cranial nerves II-XII grossly intact Psych/Mental Status: Normal Affect, Appropriate Current Medications Acetaminophen (Tylenol) 1,000 mg PO Q8H PRN PRN Reason: Pain Score 1-310 Last Admin: 02/07/20 00:51 Dose: 1,000 mg Documented by: Bisacodyl (Dulcolax) 10 mg RECTAL UD PRN PRN Reason: If no BM Hydrocortisone (Hytone) 1 applic TOPICAL TID PRN PRN; Protocol PRN Reason: Discomfort Naloxone HCl 4 mg/ Dextrose 504 mls @ 0 mls/hr IV .Q0M PRN; Protocol PRN Reason: Respiratory depression Ibuprofen (Motrin) 600 mg PO Q6H PRN PRN PRN Reason: Pain Score 1-3/10 Last Admin: 02/06/20 18:34 Dose: 600 mg Documented by: Methylergonovine Maleate (Methergine) 0.2 mg IM X1 PRN PRN Reason: Uterine Atony Naloxone HCl (Narcan) 0.02 mg IV Q1M PRN PRN Reason: RR <10 and pt unresponsive Ondansetron HCl (Zofran) 4 mg IV Q4H PRN PRN PRN Reason: Nausea Oxycodone HCl (Oxyir) 5 - 10 mg PO Q4H PRN PRN PRN Reason: Pain Score 4-10/10 Last Admin: 02/07/20 10:34 Dose: 5 mg Documented by: Prochlorperazine Edisylate (Compazine Iv) 10 mg IV Q6H PRN PRN PRN Reason: NAUSEA Senna/Docusate Sodium (Senokot-S, Deloris-Colace) 0 tablet PO DAILY PRN PRN Reason: Constipation Last Admin: 02/07/20 09:46 Dose: 1 tablet Documented by: Simethicone (Mylicon) 80 mg PO PCHS PRN PRN Reason: Indigestion/stomach pain Medical Necessity - Tobacco Use Smoking Status: Never smoker Assessment/Plan A/P: POD #2 Repeat Normal involution and lochia well Pain well controlled Educated on removing dressing, pain control, depression and follow up Will discharge home today
[2020-02-07 12:10] VITALS: BP 107/70; PULSE 69; RESP 16; TEMP 36.8
[2020-02-07 12:15] VITALS: BP 107/70; PULSE 69; RESP 16; TEMP 36.8
[2020-02-07] MEDS: Ibuprofen 600 MG Tablet PO (13:17)
[2020-02-12 01:34] LABS: Rapid Plasmin Reagin (RPR) NONREACTIVE (NONREACTIVE)
== END 2020-02-07 13:45 | disposition home or self-care (01) | DRG 788 ==
PROVIDERS: Admitting Provider Obstetrics & Gynecology; PCP Family Medicine; Referring Provider Obstetrics & Gynecology; Visit Provider Obstetrics & Gynecology
PROC: 10D00Z1 Extraction of Products of Conception, Low, Open Approach (ICD-10-PCS; CPT 59514; principal; 2020-02-05 07:15)
DX: O34.211 Maternal care for low transverse scar from previous cesarean delivery (principal); Z37.0 Single live birth; Z3A.39 39 weeks gestation of pregnancy
CPT/HCPCS: 85025; 85027; 86592; 86703; 86762; 86803; 86850; 86900; 86901; 87340; 99218; J7120; A4216; G0378; J2405

== ENCOUNTER → 2021-05-12 16:45 | Outpatient (CLI) | payer OTHER, SELFPAY ==
[2020-02-05 05:59] VITALS: BMI 28.6
[2021-05-12 17:23] LABS: Absolute Lymphocyte Count 1.36 X10^3/uL (0.83-4.51); Absolute Neutrophil Count 5.8 X10^3/uL (2.0-7.7); Basophil# 0.02 X10^3/uL; Basophil% 0.3 % (0-1); Eosinophil# 0.05 X10^3/uL; Eosinophils% 0.7 % (0-5); Hematocrit 36.2 % (37-47); Hemoglobin 12.1 g/dL (12.0-15.0); Lymphocyte # 1.36 X10^3/ul (0.83-4.51); Lymphocyte % 17.8 % (19-41); Mean Corp Hgb Conc 33.4 g/dL (32-36); Mean Corpuscular Hgb 29.4 pg (27.0-32.0); Mean Corpuscular Volume 88.1 fL (81-99); Monocyte% 5.2 % (0-10); NRBC Flagged by Analyzer 0 % (0-5); Neutrophil # 5.77 X10^3/uL (2.7-7.7); Neutrophil % 75.6 % (47-70); Platelet Count 235 K/mm3 (150-450); RBC Distribution Width CV 12.9 % (11.6-14.6); RBC Distribution Width SD 41.6 fl (35.1-43.9); Red Blood Count 4.11 M/mm3 (4.2-5.4); White Blood Count 7.6 K/mm3 (4.4-11.0)
[2021-05-13 08:59] LABS: HIV - WCH Non-Reactive (Nonreactive); Hepatitis B Surface Antigen Non-Reactive (Nonreactive); Hepatitis C Antibody Non-Reactive (Nonreactive); Rubella IgG Reactive (Nonreactive); Syphilis Antibodies Non-reactive
[2021-05-16 04:06] LABS: Chlamydia By Nucleic Acid AMP Negative (Negative)
[2021-05-16 12:02] LABS: Gonococcus By Nucleic Acid AMP Negative (Negative)
== END ==
PROVIDERS: PCP Family Medicine; Visit Provider Obstetrics & Gynecology
DX: Z34.82 Encounter for supervision of other normal pregnancy, second trimester (principal); Z11.3 Encounter for screening for infections with a predominantly sexual mode of transmission
CPT/HCPCS: 36415; 85025; 86703; 86762; 86780; 86803; 87086; 87088; 87340; 87491; 87591

== ENCOUNTER → 2021-08-04 14:48 | Outpatient (CLI) | payer OTHER, SELFPAY ==
[2021-08-04 15:47] LABS: Hematocrit 37.2 % (37-47); Hemoglobin 11.9 g/dL (12.0-15.0); Mean Corpuscular Hgb 29.3 pg (27.0-32.0); Mean Corpuscular Volume 91.6 fL (81-99); Mean Platelet Vol. 9.7 fl (6.2-12.0); Platelet Count 277 K/mm3 (150-450); RBC Distribution Width CV 12.1 % (11.6-14.6); RBC Distribution Width SD 40.8 fl (35.1-43.9); Red Blood Count 4.06 M/mm3 (4.2-5.4)
[2021-08-04 16:25] LABS: Glucose Challenge Gest 1H 50g 92 mg/dL (70-140)
== END ==
PROVIDERS: PCP Family Medicine; Visit Provider Obstetrics & Gynecology
DX: Z34.83 Encounter for supervision of other normal pregnancy, third trimester (principal)
CPT/HCPCS: 36415; 82950; 85027

== ENCOUNTER → 2021-10-12 | Outpatient (CLI) | payer OTHER, SELFPAY | END | disposition home or self-care (01) | LOC: LABSPEC 13:40 | PROVIDERS: PCP Family Medicine; Visit Provider Obstetrics & Gynecology | DX: Z03.818 Encounter for observation for suspected exposure to other biological agents ruled out (principal) | CPT/HCPCS: 87635; U0005; U0003 ==

== ENCOUNTER 2021-10-18 05:00 | Inpatient (IN) | payer SELFPAY, OTHER ==
[2020-02-05 05:59] VITALS: BMI 28.6
[2021-10-18] VITALS (16 sets, daily range): BP systolic 94–121; BP diastolic 27–91; PULSE 69–110; RESP 14–18; TEMP 36.1–36.7; O2SAT 95–100; BMI 29.5
--- NOTE | 2021-10-18 | FALS_PTH ---
PATIENT: FILIPE GALEANO I LOC: WP U#:[id number] AGE/SX: 26/F ROOM: WP008 RE10/18/[address]: Dr. Pardeep Nickerson MD : 1995 BED: 1 DIS: 10/19/2021 SPEC #: [id number] RECD: 10/18/21 09:37 STATUS: BRANDIN REHernandez #: [id number] ABDOULAYE: 10/18/21 00:[address]: Pardeep Nickerson DEPT: SURGICAL PATHOLOGY RECD BY: Alfredo Valdes ENTERED: 10/18/21 11:11 SP TYPE: FALL TUBES OTHR DR: Dr. Pardeep Steiner MD Tissues: Fallopian tube Procedures: Surgery Specimen Level II HEADER OPERATION: Tubal ligation PRE-OP DIAGNOSIS: Sterilization TISSUE SUBMITTED: Fallopian tubes, suture in right tube MICROSCOPIC DIAGNOSIS Right fallopian tube, salpingectomy: Complete segment of fallopian tube with no pathologic change. Left fallopian tube, salpingectomy: Complete segment of fallopian tube with no pathologic change. AM:jamison 10/19/2021 MICROSCOPIC DESCRIPTION Slides are reviewed. GROSS DESCRIPTION Received in fixative is one container labeled with the patient's name and designated bilateral fallopian tubes. The specimen consists of two fallopian tubes with an average length of 7 cm and has an average diameter of 0.8 cm. Both fallopian tubes have normal fimbriated ends. No mass lesions are identified. Sewer Cleaner sections are submitted in two cassettes as follows: 1 - right fallopian tube, 2 - left fallopian tube. / AM:jamison 10/18/21 TC:5 CPT: 47169 x2
[2021-10-18] MEDS: Lactated Ringers 1,000 ML 999 ML IV (05:34)
[2021-10-18 05:42] LABS: Absolute Lymphocyte Count 1.77 X10^3/uL (0.83-4.51); Absolute Neutrophil Count 7.4 X10^3/uL (2.0-7.7); Basophil# 0.02 X10^3/uL; Basophil% 0.2 % (0-1); Eosinophil# 0.03 X10^3/uL; Eosinophils% 0.3 % (0-5); Hematocrit 34.6 % (37-47); Hemoglobin 11.1 g/dL (12.0-15.0); Lymphocyte # 1.77 X10^3/ul (0.83-4.51); Mean Corp Hgb Conc 32.1 g/dL (32-36); Mean Corpuscular Hgb 27.1 pg (27.0-32.0); Mean Corpuscular Volume 84.6 fL (81-99); Mean Platelet Vol. 9.8 fl (6.2-12.0); Monocyte# 0.58 X10^3/uL; Monocyte% 5.9 % (0-10); NRBC Flagged by Analyzer 0 % (0-5); Neutrophil # 7.38 X10^3/uL (2.7-7.7); Neutrophil % 75.1 % (47-70); Platelet Count 267 K/mm3 (150-450); RBC Distribution Width CV 12.8 % (11.6-14.6); RBC Distribution Width SD 38.9 fl (35.1-43.9); Red Blood Count 4.09 M/mm3 (4.2-5.4); White Blood Count 9.8 K/mm3 (4.4-11.0)
[2021-10-18] MEDS: Acetaminophen 500 MG Tablet 1000 MG PO ×4 (05:50→23:46)
[2021-10-18] MEDS: Lactated Ringers 1,000 ML 150 ML IV (06:38)
[2021-10-18] MEDS: Sodium Citrate/Citric Acid 30 ML UDC PO (06:59)
[2021-10-18] MEDS: Cefazolin 2 GM in 0.9% Normal Saline 100 ML IV (07:22)
--- NOTE | 2021-10-18 07:36 | HP.PCM_ITS ---
History and Physical Date of Admission: 10/18/21 ACOG ANTEPARTUM RECORD - HISTORY AND PHYSICAL (10/18/2021) Name: FILIPE SELF History of this : This is a 26 year old [id number] presents at 39 wks + 4 days gestation for repeat and Bilateral Salpingectomy. OB Physician: Pardeep Nickerson MD 's Physician: Jatin ...................................................................... : 1995 Age: 26 [address]: [address] [place] [address] Phone: (h) [phone] ([phone] Insurance Carrier: Visto [id number] Emergency Contact: JASON SELF [phone] ...................................................................... Final CHATO: 10/21/21 By Ultrasound: 16 weeks 6 days PARITY: (G-Total Pregnancies P-Fullterm,Premature,Induced AB,Spont AB, Ectopics, Multiple,Living) CHATO CONFIRMATION: By LMP: 01/14/21 Initial Exam: 10/21/21 By First Ultrasound Exam: 10/15/21 Final CHATO: 10/21/21 OB PROBLEM LIST: Declines genetic and carrier screening History of x2 , For repeat Late care Low-lying placenta at 16 weeks --Marginal previa persists at 20 wks; repeat u/s at 28 wks--resolved at 29 weeks ALLERGIES: No Known Allergies MEDICATIONS: Vitamin 27 mg iron-800 mcg tablet One tablet by mouth daily Zofran 4 mg tablet 1 tab po tid prn nausea and vomiting SOCIAL HISTORY: Smoking - Never Alcohol Use - denies drinking Diet - balanced Diet Lifestyle - low stress lifestyle and Exercise - minimal Employer - [employer] 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 Drug Use - denies use of street drugs Sexual Activity - Residence - lives with Place of - [place], [place] Spouse-Sig Other Name - Marcos Self Spouse-Sig Other Occupation - [employer] Spouse-Sig Other Phone No - [phone] Children Name(s) - Nathan(18), Yodit Del Real ('20) PRIOR DELIVERY HISTORY DEL DATE GEST LAB WT LB WT OZ TYPE ANES LABOR TX 23 Apr 20 39 0 7 14 C-Sec Spinal No 30 Apr 18 39 0 6 12 C-Sec Spinal No ANTEPARTUM FLOW CHART VISIT RTC FU F F VA U U DATE WK MD WKS HT PN HR M SS BP ED WT VA GL D EF ST __ ____ ___ __ __ ___ __ __ __ ___ __ __ __ ___ __ Sep JMW 1 38 + + 120/74 0 157 ne ne Sep JM 1 37 V + + O 136/97 0 156 1+ - 14 Sep JMW 1 36 + + 106/76 0 155 - - 30 Nov 34 JMW 2 34 + + 114/76 sl 151 1+ ne Aug JMW 3 31 + + 128/72 - 148 - - Aug 11 JMW 3 28 + + 118/72 0 143 - - Jul 09 JMW 3 25 + + 118/78 0 137 - - ANTEPARTUM NOTE(S): Oct 12 2021: FM well, No complaints, , covid swab done today Oct 04 2021: see prog note Sep 27 2021: doing well, LARC today Sep 13 2021: [place],Good FM,Feeling Well Aug 23 2021: doing well Aug 04 2021: One Hr PG today Jul 12 2021: Glucola/Instructions Given,Good FM COMPREHENSIVE ANTEPARTUM NOTE(S): Oct 12 2021: H taken to OB. tkg Oct 04 2021: Patient's BP rechecked Rt upper arm regular cuff, manual 116/84. Patient deneis any vision changes and no changes to headaches. Patient declines cervix check today. jlb Oct 04 2021: 37wk, no complaints. Discussed control. OCP vs IUD. JM Aug 04 2021: R[place]a her for PNV Jun 15 2021: NOB TELEHEALTH VISIT, 25 MINUTE DURATION. 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 Filipe resides with her , Marcos, and their two young children. Both of her children were delivered by C/S at [facility], her first C/S was for a breech presentation, and her second was a scheduled repeat C/S. Past history updated. Deliv May 12 2021: Filipe is a 26 yr old GR 3, P2 here w/her , Marcos for Missed Menses. By LMP 01/14/21, she would be 16 wks 6 days, CHATO 10/21/21. Hx regular monthly periods. They have a 3 yr old and a 1 yr old at home. Taking Zofran once daily for nausea, no vomiting. Offered Vit B-6, 50 mg, Unisom w/Doxylamine @ bedtime. Sometimes having some constipation -- recommended Colace 100 mg once to BID as needed. H REVIEW OF SYSTEMS: GENERAL - Denies fever, or chills SKIN - Denies rash, new skin lesions, or change in moles EYES - Denies blurred vision, or change in visual acuity EARS - Denies ear pain, or difficulty hearing NOSE - Denies nasal congestion, discharge, or bleeding MOUTH - Denies sore throat, or difficulty swallowing NECK - Denies pain or swelling RESPIRATORY - Denies shortness of breath, cough, wheezing CARDIOVASCULAR - Denies palpitations, chest pain, orthopnea, PND, peripheral edema, syncope or claudication GASTROINTESTINAL - Denies nausea, vomiting, diarrhea, constipation, Denies abdominal pain, melena and or bright red blood GENITOURINARY - Denies dysuria, frequency of urination, urgency, or hesitancy MUSCULOSKELETAL - Denies joint or muscle pain, or back pain NEUROLOGICAL - Denies localized numbness, weakness, or tingling PSYCHIATRIC - Denies depression, anxiety, substance abuse or suicide attempts ENDOCRINE - Denies heat or cold intolerance, weight loss or gain, increasing thirst HEMATO-IMMUNOLOGIC - Denies easy bruising, bleeding, oral ulcerations or recurrent infections GENETICS SCREENING: Age 35+ years: No Thalassemia: No Neural Tube Defect: No Down Syndrome: No KATARINA-SACHS: No Sickle Cell Disease: No Hemophilia: No Musc. Dystrophy: No Cystic Fibrosis: No-declines screening Sylvia Chorea: No Mental Retardation: No Fragile X: No Other genetic: No Other defects: No SABs/still births: No Drugs since LMP: No INFECTION HISTORY: High risk AIDS: No High risk Hepatitis: No Exposed to TB: No Exposed to Herpes: No Rash/viral illness since LMP: No History of STD: No MENSTRUAL HISTORY: *Menses Amount/Duration: 4 daysMenses Regularity: RegularMenarche (Age Onset): 10* PAST SUMMARY: PARITY: 1. Total Pregnancies............ 3 2. Full Term Pregnancies........ 2 3. Premature.................... 0 4. Abortions - Induced.......... 0 5. Abortions - Spontaneous...... 0 6. Ectopics..................... 0 7. Multiple Births.............. 0 8. Living Children.............. 2 PAST #1: Date of :.................. 02/11/18 Gestation Weeks:................ 39 Length of labor(hours):......... 0 Sex:............................ M Weight-lbs:............... 6 Weight-oz:................ 12 Type of Delivery:............... C-Sect Type of Anesthesia:............. Spinal Place of Delivery:.............. Mary D Treatment of Labor?:.... No Comment: BREECH PAST #2: Date of :.................. 02/05/20 Gestation Weeks:................ 39 Length of labor(hours):......... 0 Sex:............................ F Weight-lbs:............... 7 Weight-oz:................ 14 Type of Delivery:............... C-Sect Type of Anesthesia:............. Spinal Place of Delivery:.............. [place] Treatment of Labor?:.... No Comment: PHYSICAL EXAMINATION General Appearence: 26 yo female in no acute distress Vital Signs: AF, VSS Heart: RRR without rubs or gallops Lungs: CTA x 2 Breasts: deferred Abdomen: gravid Pelvis: Cervix: Presentation: cephalic Station: Fetus: Size: AGA Movement: present Heart: present LAB TEST(S) ORDERED SINCE:01/24/21 10/13/2021 COVID 19, INDIGO [facility](RT COLLECT) 08/04/2021 GLUCOSE CHALLENGE GEST 1H 50G 08/04/2021 CBC-COMPLETE BLOOD CNT NO DIFF 05/16/2021 CHLAMYDIA/GC INDIGO APTIMA 05/14/2021 URINE CULTURE 05/13/2021 RUBELLA IGG 05/13/2021 L509.8000 05/13/2021 HIV - [facility] 05/13/2021 HEPATITIS C ANTIBODY 05/13/2021 HEPATITIS B SURFACE ANTIGEN 05/12/2021 T AND S-NO CHARGE W/PNP 05/12/2021 CBC W/DIFF, AUTOMATED 10/18/2021 TYPE AND SCREEN 10/18/2021 CBC W/DIFF, AUTOMATED == ==== Order Observation Description Value Ref_Range A* Site == ==== S [facility]~[address] [place], [address]~ TYPE AND SCRE AB SCREEN GEL NEGATIVE ML CBC W/DIFF, AUT NOTE [place] CBC W/DIFF, AUT WBC 9.8 K/mm3 4.4-11.0 ML CBC W/DIFF, AUT RBC 4.09 M/mm3 4.2-5.4 L ML CBC W/DIFF, AUT HGB 11.1 g/dL 12.0-15.0 L ML CBC W/DIFF, AUT HCT 34.6 37-47 L ML CBC W/DIFF, AUT MCV 84.6 fL 81-99 ML CBC W/DIFF, AUT MCH 27.1 pg 27.0-32.0 ML CBC W/DIFF, AUT MCHC 32.1 g/dL 32-36 ML CBC W/DIFF, AUT RDW CV 12.8 11.6-14.6 ML CBC W/DIFF, AUT RDW SD 38.9 fl 35.1-43.9 ML CBC W/DIFF, AUT PLT 267 K/mm3 150-450 ML CBC W/DIFF, AUT MPV 9.8 fl 6.2-12.0 ML CBC W/DIFF, AUT NEUT% 75.1 47-70 H ML CBC W/DIFF, AUT LY% 18.0 19-41 L ML CBC W/DIFF, AUT MONO% 5.9 0-10 ML CBC W/DIFF, AUT EO% 0.3 0-5 ML CBC W/DIFF, AUT BASO% 0.2 0-1 ML CBC W/DIFF, AUT IG% 0.500 0.0-0.9 ML IG% - Immature Granulocytes (promyelocytes, myelocytes and metamyelocytes) > 1% indicates that a LEFT SHIFT is Present. CBC W/DIFF, AUT ABSOLUTE NEUT 7.4 X10 3/uL 2.0-7.7 ML CBC W/DIFF, AUT ABSOLUTE LYMPH 1.77 X10 3/uL 0.83-4.51 ML CBC W/DIFF, AUT NUCLEATED RBC 0 0-5 ML COVID 19, INDIGO NOTE NESBITT COVID 19, INDIGO COVID-19,INDIGO Not Detected Not Detect ML Normal Reference Range: Not Detected Method:(RT-PCR) real-time reverse transcriptase PCR [employer] Instrument *The Food and Drug Administration (FDA) has issued an Emergency Use Authorization (EAU) for the [employer] SARS-CoV-2 Assay for the rapid detection of the virus that causes COVID-19. This test has been validated, but the FDAs independent review of this validation is pending. *Negative results do not preclude infection and should not be used as the sole basis for treatment or patient management. Optimum specimen types and timing for peak viral levels during infections caused by SARS-CoV-2 have not been determined. Collection of multiple specimens from the same patient may be necessary to detect the virus. The possibility of a false negative result should be considered if the patient has clinical presentation or has had recent exposure. GLUCOSE CHALLEN NOTE N[place]BITT GLUCOSE CHALLEN GLU GEST 50G 1H 92 mg/dL 70-140 ML CBC-COMPLETE BL NOTE N[place]BITT CBC-COMPLETE BL WBC 9.0 K/mm3 4.4-11.0 ML CBC-COMPLETE BL RBC 4.06 M/mm3 4.2-5.4 L ML CBC-COMPLETE BL HGB 11.9 g/dL 12.0-15.0 L ML CBC-COMPLETE BL HCT 37.2 37-47 ML CBC-COMPLETE BL MCV 91.6 fL 81-99 ML CBC-COMPLETE BL MCH 29.3 pg 27.0-32.0 ML CBC-COMPLETE BL MCHC 32.0 g/dL 32-36 ML CBC-COMPLETE BL RDW CV 12.1 11.6-14.6 ML CBC-COMPLETE BL RDW SD 40.8 fl 35.1-43.9 ML CBC-COMPLETE BL PLT 277 K/mm3 150-450 ML CBC-COMPLETE BL MPV 9.7 fl 6.2-12.0 ML CHLAMYDIA/GC NA NOTE [place] CHLAMYDIA/GC NA CHLAMY,NUC ACID Negative Negative LCI CHLAMYDIA/GC NA GC BY NUC ACID Negative Negative LCI Performed at: [facility]Lurdes [id number] Supervisor C[employer] Meats: Lali Avila MD, Phone: [phone] URINE CULTURE NOTE [place] HEPATITIS C ANT NOTE [place] HEPATITIS C ANT HEPATITIS C AB Non-Reactive Nonreactive ML Non Reactive: < 0.8 Equivocal: >/= 0.8 to < 1.0 Reactive: >/= 1.0 The CDC recommends that a reactive/equivocal HCV antibody result be followed up by the HCV Nucleic Acid Amplification test ([id number]) HEPATITIS B ELEN NOTE [place] HEPATITIS B ELEN HEP B SURF AG Non-Reactive Nonreactive ML HIV - [facility] NOTE [place] HIV - [facility] HIV Non-Reactive Nonreactive ML L509.8000 NOTE NESBITT L509.8000 SYPHILIS ABS Non-reactive ML RUBELLA IGG NOTE [place] RUBELLA IGG RUBELLA IGG Reactive Nonreactive ML Antibody Results Interpretation of Immune Status Non Reactive Presumed Non-Immune Equivocal Equivocal Reactive Presumed Immune PN N [facility]~[address] [place], [address]~ T AND AB SCREEN GEL NEGATIVE ML CBC W/DIFF, AUT NOTE [place] CBC W/DIFF, AUT WBC 7.6 K/mm3 4.4-11.0 ML CBC W/DIFF, AUT RBC 4.11 M/mm3 4.2-5.4 L ML CBC W/DIFF, AUT HGB 12.1 g/dL 12.0-15.0 ML CBC W/DIFF, AUT HCT 36.2 37-47 L ML CBC W/DIFF, AUT MCV 88.1 fL 81-99 ML CBC W/DIFF, AUT MCH 29.4 pg 27.0-32.0 ML CBC W/DIFF, AUT MCHC 33.4 g/dL 32-36 ML CBC W/DIFF, AUT RDW CV 12.9 11.6-14.6 ML CBC W/DIFF, AUT RDW SD 41.6 fl 35.1-43.9 ML CBC W/DIFF, AUT PLT 235 K/mm3 150-450 ML CBC W/DIFF, AUT MPV 10.0 fl 6.2-12.0 ML CBC W/DIFF, AUT NEUT% 75.6 47-70 H ML CBC W/DIFF, AUT LY% 17.8 19-41 L ML CBC W/DIFF, AUT MONO% 5.2 0-10 ML CBC W/DIFF, AUT EO% 0.7 0-5 ML CBC W/DIFF, AUT BASO% 0.3 0-1 ML CBC W/DIFF, AUT IG% 0.400 0.0-0.9 ML IG% - Immature Granulocytes (promyelocytes, myelocytes and metamyelocytes) > 1% indicates that a LEFT SHIFT is Present. CBC W/DIFF, AUT ABSOLUTE NEUT 5.8 X10 3/uL 2.0-7.7 ML CBC W/DIFF, AUT ABSOLUTE LYMPH 1.36 X10 3/uL 0.83-4.51 ML CBC W/DIFF, AUT NUCLEATED RBC 0 0-5 ML O POSITIVE Below infection level. Mixed Gram Pos Gram Neg Org [place] Count 1000-10,000 MIXC Mixed contaminants. Submit a new specimen if indicated. O POSITIVE == ==== Impression /Plan: 39 wks + 4 days intrauterine for repeat and sterilization. Preparations in progress for delivery.
--- NOTE | 2021-10-18 08:32 | EX.PCM.OBRPT ---
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 She also desires permanent sterilization and has considered this form of control for quite some time. care has otherwise been uneventful. The patient has been counseled regarding the risk and indications of this procedure including the possibility of bleeding infection and injury to surrounding structures such as bowel bladder. She also understands the permanent nature of her tubal, the failure rate of 1 to 2%, and the availability of other nonpermanent control options. All questions were answered. Procedure: Patient was taken to the operating room where after spinal anesthesia was placed, the patient was prepped and draped in usual sterile fashion and a Edmondson catheter was placed. The abdomen was entered through the patient's prior Pfannenstiel incision and peritoneum was entered bluntly. After developing a bladder flap on the lower uterine segment a low transverse incision was made on the uterus and head was easily delivered onto the operative field the nose mouth and oropharynx were bulb suctioned. Subsequently a viable male was born with Apgars of 8/9. The was noted to cry move all extremities vigorously on the operative field. The umbilical cord was doubly clamped and ligated and handed to the nursery personnel who were present for the delivery. Placenta was delivered and noted to be 3 vessels and normal. Uterus was exteriorized and remaining placental tissue was removed. The uterus was then closed in 2 layers first with running locked 0 Vicryl suture followed by a second imbricating layer with 0 Vicryl suture. 0 Vicryl suture was then used in a horizontal mattress interrupted fashion to affect final hemostasis of the uterine incision line. Normal fallopian tubes and ovaries were visualized and and the tubes were removed using a LigaSure device across the mesosalpinx and proximal tube. The uterus was returned to the pelvis. Hemostasis was noted and rectus abdominis muscles were reapproximated in the midline with interrupted Number 0 Vicryl suture in a horizontal mattress fashion. Fascia was closed with running Number 1 PDS Strata fix suture. Subcutaneous tissue was irrigated with copious amounts of saline solution and then closed with running 3-0 Vicryl suture. Skin was closed with 4-0 monocryl suture in a running subcuticular fashion. Steri strips and a Mepilex dressing were placed across the incision. The patient tolerated the procedure well and was taken to the recovery room in satisfactory condition. Sponge, needle, and instrument counts were all reportedly correct. EBL was less than 500 cc. Ancef 2 gms IV was given prior to the procedure. Spicemen to Pathology: Bilateral fallopian tubes Complications: None Presentation: Positive for Vertex Amniotic Fluid Description: Clear Placental Delivery Description: Spontaneous Placenta Disposition: [facility] Cord Vessel Description: 3 Vessels Cord Entanglement: Around neck x 1, loose Infant A Gender: Male (1 minute): 8 (5 minute): 9 Complications Risks of Surgery Discussed w/Patient: Bleeding, Infection, Permanency, Failure Rate of 1 to 2%, Injury to surrounding structure(s) including bowel and bladder and Availability of other non-permanent control options Complications: None
[2021-10-18] MEDS: Oxytocin 30 units/NS 500 ml 30 UNITS/500 ML IV.SOLN 167 UNITS IV (08:55)
[2021-10-18] MEDS: Ketorolac 30 MG/ML Syringe IV ×3 (09:37→21:01)
[2021-10-18] MEDS: Lactated Ringers 1,000 ML 100 ML IV (12:01)
[2021-10-18] MEDS: Cefazolin 1 GM/50 ML BAG IV ×2 (15:22→23:46)
--- NOTE | 2021-10-18 17:14 | NURSING ---
Pt had delay in getting feeling back in her legs. This delayed first ambulation.
[2021-10-18] MEDS: 0.9% Saline Lock 10 ML Syringe IV ×2 (21:00→23:47)
[2021-10-19 03:30] VITALS: BP 103/43; PULSE 66; RESP 16; TEMP 36.4; O2SAT 96
[2021-10-19] MEDS: Ketorolac 30 MG/ML Syringe IV (03:30)
[2021-10-19] MEDS: 0.9% Saline Lock 10 ML Syringe IV (03:30)
[2021-10-19] MEDS: Acetaminophen 500 MG Tablet 1000 MG PO ×3 (06:27→20:25)
[2021-10-19 06:44] LABS: Hematocrit 32.5 % (37-47); Hemoglobin 10.6 g/dL (12.0-15.0); Mean Corp Hgb Conc 32.6 g/dL (32-36); Mean Corpuscular Hgb 27.9 pg (27.0-32.0); Mean Corpuscular Volume 85.5 fL (81-99); Mean Platelet Vol. 9.8 fl (6.2-12.0); Platelet Count 259 K/mm3 (150-450); RBC Distribution Width SD 39.8 fl (35.1-43.9); White Blood Count 10.5 K/mm3 (4.4-11.0)
[2021-10-19 07:00] VITALS: BP 98/50; PULSE 66; RESP 18; TEMP 36.4; O2SAT 97
--- NOTE | 2021-10-19 09:21 | PCM.PN.OB ---
Subjective Subjective Patient without complaints. Tolerating diet well. Positive flatus. Minimal vaginal bleeding. Wants to go home later today if baby is able to go. Objective Data Objective Data Vital Signs: Vital Signs Temp Pulse Resp BP Pulse Ox 97.5 F L 66 18 98/50 L 97 10/19/21 07:00 10/19/21 07:00 10/19/21 07:00 10/19/21 07:00 10/19/21 07:00 Oxygen Delivery Method Room Air Weight: 156 lb 8.451 oz Body Mass Index (BMI) 29.5 Intake & Output: Intake and Output for Last 24 Hours 10/17/21 10/18/21 10/19/21 23:59 23:59 23:59 Intake Total 3568.33 / 3568.33 50 / 50 Output Total 800 / 800 425 / 425 Balance 2768.33 / 2768.33 -375 / -375 Lab / Micro Data Result Diagrams: 10/19/21 06:32 Labs: Laboratory Results - last 24 hr 10/19/21 06:32: WBC 10.5, RBC 3.80 L, Hgb 10.6 L, Hct 32.5 L, MCV 85.5, MCH 27.9, MCHC 32.6, RDW Std Deviation 39.8, RDW Coeff of Dc 13.0, Plt Count 259, MPV 9.8 Assessment & Plan (1) S/P repeat low transverse : PLAN: Doing well postoperative day #1 status post repeat section. Also had bilateral salpingectomy. Wants to go home later today if baby is able to go. Will discharge to home with routine instructions.
--- NOTE | 2021-10-19 09:22 | PCM.DC ---
Discharge Instructions Diet Discharge Diet: No restrictions Activity May resume sexual activity in: 4-6 weeks Lifting Restrictions: 20 pounds Dressing / Incision Call your doctor if your incision/area has: Continuous Slow Oozing, Sudden Increased Bleeding, Increased Pain/ Swelling, Increased Redness and Foul Smelling Discharge Call your doctor if you observe: Fever of 101 or Higher, Inability to urinate, Inability to have a bowel movement and Using more than 1 pad per hour Follow Up Care Please Follow Up With: Pardeep Nickerson MD When: Call [phone] for appointment to be seen in 2 weeks. Test Results: Test results from this visit will be discussed in further detail at your follow-up appointment, if applicable. Discharge Plan Admission Admit Date/Time: 10/18/21 05:00 Primary Reason for Your Visit: Repeat and Tubal Attending Provider: Pardeep Nickerson Primary Care Provider: Pardeep Steiner Discharge Orders/Prescriptions Prescriptions: New oxycodone 5 mg capsule 5 mg PO Q6H PRN (Reason: pain (scale score 7-10)) 7 Days Qty: 10 RF: 0 docusate sodium 100 mg tablet 100 mg PO BID PRN (Reason: constipation) Qty: 60 RF: 1 Continued prenat.vits,jacob,[id number]-[id number]-[id number] Tablet 1 tab PO DAILY RF: 0 Referrals / Follow Up: Pardeep Steiner MD [Primary Care Provider] - Disposition Disposition (needs filled in before D/C Order can be placed): Home, Self Care
[2021-10-19] MEDS: Senna/Docusate Sodium 1 Tablet PO (09:32)
[2021-10-19] MEDS: Ibuprofen 600 MG Tablet PO ×2 (09:32→16:14)
[2021-10-19 14:13] LABS: Pathology Specimen OB SEE PATHOLOGY REPORT
[2021-10-19 14:49] VITALS: BP 100/54; PULSE 78; RESP 18; TEMP 36.6; O2SAT 97
[2021-10-19 20:03] VITALS: BP 104/63; PULSE 80; RESP 16; TEMP 36.3
== END 2021-10-19 20:26 | disposition home or self-care (01) | DRG 785 ==
PROVIDERS: Admitting Provider Obstetrics & Gynecology; PCP Family Medicine; Referring Provider Obstetrics & Gynecology; Visit Provider Obstetrics & Gynecology
PROC: 0UB70ZZ Excision of Bilateral Fallopian Tubes, Open Approach (ICD-10-PCS; CPT 59514; principal; 2021-10-18 07:15)
DX: O34.211 Maternal care for low transverse scar from previous cesarean delivery (principal); Z3A.39 39 weeks gestation of pregnancy; Z37.0 Single live birth; Z30.2 Encounter for sterilization; O69.81X0 Labor and delivery complicated by cord around neck, without compression, not applicable or unspecified
CPT/HCPCS: 85027; 99218; J7120; A4216; G0378; J2405